=== PATIENT | male | born 2000 ===

== ENCOUNTER 2024-11-05 15:26 | Emergency (ER) | payer MEDICAID, SELFPAY ==
[2024-11-05] VITALS (28 sets, daily range): BP systolic 108–144; BP diastolic 47–89; PULSE 81–171; RESP 15–30; TEMP 34.3–36.6; O2SAT 89–100
--- NOTE | 2024-11-05 15:30 | RT.EKG_ITS ---
APPROVED REPORT Exam: Resting ECG Reason for Exam: chest pain Patient Location: E HR:104 bpm ECG Measurements Heart Rate 104 AXIS CO 121 P -22 QRSd 86 QRS 64 QT 328 T 42 QTc 432 Conclusion Sinus tachycardia at a rate of 104 with wandering leads without acute ischemic change
--- NOTE | 2024-11-05 15:30 | RT.EKG_ITS ---
APPROVED REPORT Exam: Resting ECG Reason for Exam: Peaked [place] Patient Location: E HR:94 bpm ECG Measurements Heart Rate 94 AXIS ID 165 P 259 QRSd 201 QRS -94 QT 465 T 63 QTc 581 Conclusion wide complex tachycardia prolong qtc
--- NOTE | 2024-11-05 15:46 | DI.RAD_ITS ---
Exam(s) XR CHEST 1V IN DI DEPT EXAM: XR CHEST 1V IN DI DEPT CLINICAL HISTORY: weakness TECHNIQUE: 2D digital imaging was performed. COMPARISON: No exams were available for comparison FINDINGS: The lungs are partially obscured by multiple overlying monitoring devices. LUNGS: Clear where visualized. No pleural abnormality seen. HEART: Normal size. AORTA: Normal diameter. BONES: Unremarkable for age. Soft tissues: Unremarkable. IMPRESSION: No acute findings. DATA REPOSITORY: RADIATION DOSE DELIVERED:
[2024-11-05 15:48] LABS: BE (Venous) -28 mmol/L (-2-3); HCO3 (Venous) 3 mmol/L (23-28); O2 Sat (Venous) 97 %; pO2 (Venous) 117 mmHg
[2024-11-05 15:50] LABS: HCT 43.1 % (40.0-50.0); HGB 14.3 g/dL (13.5-17.5); MCH 29.6 pg (27.0-33.0); MCHC 33.2 % (32.0-36.0); MCV 89 fL (80-95); MPV 12.3 fL (8.0-11.0); Platelet Count 147 10^3/uL (130-400); RBC 4.83 10^6/uL (4.36-5.78); RDW 12.0 % (11.8-14.1); RDW-SD 39.1 fL; WBC 18.03 10^3/uL (4.4-10.8)
--- NOTE | 2024-11-05 15:55 | ED.PROG_ITS ---
Date of service: 11/05/24 Time of Service: 17:04 Medical Decision Making Patient evaluated in conjunction with the PA secondary to medical complexity. Patient arrived via EMS with altered mental status and hyperglycemia. Known type I diabetic. Unknown last normal. Significant concern for the patient's wellbeing given his vital sign derangement, wide-complex tachycardia and mental status. He was placed on code cart pads. Patient is obtunded on exam will wake up with painful stimuli. 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 On review of the EKG, IV magnesium was initiated. Patient also started on insulin. High suspicion for severe metabolic derangement. He had received IV fluids by EMS and an additional liter was provided in the emergency department. Lab work reviewed, leukocytosis noted, also in the setting of hypothermia, blood cultures have been sent and started on broad-spectrum antibiotics. VBG concerning for significant acidosis patient has not made any urine, Ervin catheter has been ordered. His initial CMP concerning for severe derangement including hyponatremia, likely falsely low secondary to the hyperglycemia at 911. Potassium 8.2 not hemolyzed. Chloride, CO2 significantly low. His BUN and creatinine are also significantly high. Given the nearly full derangements the patient has at this time, he has been resuscitated with IV fluids, given bicarb, calcium, magnesium, insulin infusion. Given the severity of his illness he needs transfer to higher level of care. Critical Care Time Critical Care Time Critical Care Time: Yes Total Critical Care Time: 40 Attestation: CRITICAL CARE Upon my evaluation, this patient had a high probability of imminent or life- threatening deterioration due to metabolic derangement, diabetic ketoacidosis which required my direct attention, intervention, and personal management. I have personally provided 40 minutes of critical care time exclusive of time spent on separately billable procedures. Time includes review of laboratory data, radiology results, discussion with consultants, and monitoring for potential decompensation. Interventions were performed as documented above Discharge Plan Disposition Patient Disposition: Transfer-Acute Inpatient Care Discharge Details Clinical Impression: Altered mental status, DKA, type 1, CATINA (acute kidney injury), Hypothermia, Hyperkalemia Primary Care Provider: None,None ED Provider: Ginger Prasad
[2024-11-05] MEDS: INSULIN REGULAR IN 0.9 % NACL 100 UNIT/100 ML BAG 6.7 UNIT IVINF (15:58)
[2024-11-05] MEDS: Normal Saline 1,000 ML 1000 ML IV ×2 (15:59→18:19)
[2024-11-05] MEDS: MAGNESIUM SULFATE 2 GM/50 ML BAG 50 GM (16:00)
[2024-11-05 16:10] LABS: Abs Immature Grans 0.00 10^3/uL (0.0-0.06); RBC Morphology Normal
[2024-11-05 16:15] LABS: AST 111 U/L (15-37); Albumin 4.4 g/dL (3.4-5.0); Alkaline Phosphatase 128 U/L (46-116); BUN 78 mg/dL (7-18); Bilirubin, Total 0.9 mg/dL (0.2-1.0); Calcium 9.1 mg/dL (8.5-10.1); Chloride 81 mmol/L (98-107); Estimated GFR 27.56 (mL/min/1.73m2); Magnesium 3.1 mg/dL (1.8-2.4); Total Protein 7.7 g/dL (6.4-8.2)
[2024-11-05 16:15] LABS: Ammonia 43 umol/L (11-32)
[2024-11-05 16:19] LABS: Lipase 22 U/L (<78)
[2024-11-05 16:29] LABS: ALT 50 U/L (16-63)
[2024-11-05 16:30] LABS: Anion Gap 33.00001 mmol/L (3-11)
[2024-11-05 16:32] LABS: Glucose 911 mg/dL (74-106); Sodium 119 mmol/L (136-145)
[2024-11-05 16:33] LABS: CO2 < 5.0 mmol/L (21.0-32.0); Potassium 8.2 mmol/L (3.5-5.1)
[2024-11-05] MEDS: Insulin REGULAR-Human 100 UNITS/ML UNIT 6 UNITS IV (16:41)
[2024-11-05] MEDS: Calcium Gluconate 4.65 MEQ/10 ML VIAL 4.65 MG IVP (16:46)
[2024-11-05 16:54] LABS: TSH (W/Ref FT4) 0.92 uIU/mL (0.36-3.74)
[2024-11-05] MEDS: cefTRIAXone 1 GM/50 ML BAG IVPB (17:00)
[2024-11-05 17:01] LABS: O2 Sat (Venous) 96 %; pO2 (Venous) 109 mmHg
[2024-11-05 17:05] LABS: BE (Venous) -29 mmol/L (-2-3); HCO3 (Venous) 2 mmol/L (23-28)
[2024-11-05] MEDS: Sodium Bicarbonate 50 MEQ/50 ML SYR 100 MEQ IVP (17:18)
[2024-11-05 17:25] LABS: Glucose >=1000 mg/dL (Negative)
[2024-11-05 17:30] LABS: RBC 20-50 HPF (0-2); WBC 0-2 HPF (0-5)
[2024-11-05 17:31] LABS: C & S Indicated? No
--- NOTE | 2024-11-05 17:35 | W.ED.GENAD ---
Discharge Plan Disposition Patient Disposition: Transfer-Acute Inpatient Care Discharge Details Clinical Impression: Altered mental status, DKA, type 1, CATINA (acute kidney injury), Hypothermia, Hyperkalemia Primary Care Provider: None,None ED Provider: Ginger Prasad General Date/Time Provider Initiated Documentation: 11/05/24 15:32. HPI Narrative: This 24-year-old male with history of insulin-dependent diabetes presents obtunded with elevated glucose level per EMS. He reportedly had alcohol with friends on November 02 and was in his room for a few days his brother went to check on him this morning and noticed he was confused and weak. He is concerned that he might not have received his insulin. He denies any known injuries EMS reports that patient was found in bed. Glucose reading was high . No history of drug use. EMS did not notice anything unusual around the bed and brother denies any illicit substance use. 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 no abdominal tenderness or visible evidence of trauma no visible evidence of back trauma no rashes or lesions no meningismus moves neck able to follow some basic commands hand grasp plantar and dorsal foot flexion Course Vital Signs Vital signs: Vital Signs Pulse 104 H 11/05/24 15:32 Respiratory Rate 30 H 11/05/24 15:32 Blood Pressure 123/67 11/05/24 15:32 Pulse Oximetry 89 L 11/05/24 15:32 Temperature 34.3 C L 11/05/24 16:04 Temperature Source Rectal 11/05/24 16:04 Pulse 92 H 11/05/24 16:31 Pulse 90 11/05/24 16:31 Respiratory Rate 21 11/05/24 16:22 Blood Pressure 140/68 11/05/24 16:31 Blood Pressure Mean 93 11/05/24 16:31 Pulse Oximetry 99 11/05/24 16:22 Respiratory End-tidal CO2 9 11/05/24 16:31 Oxygen Delivery Method Room Air 11/05/24 16:04 Oxygen Flow Rate 0 11/05/24 16:04 Lab/Test Results Lab/Test Results: 11/05/24 16:35 Blood Blood Culture - Pending 11/05/24 16:23 Blood Blood Culture - Pending Laboratory Tests Range/Units 11/05/24 11/05/24 11/05/24 15:42 15:53 16:54 WBC (4.4-10.8) 10^3/uL 18.03 H RBC (4.36-5.78) 10^6/uL 4.83 Hgb (13.5-17.5) g/dL 14.3 Hct (40.0-50.0) % 43.1 MCV (80-95) fL 89 MCH (27.0-33.0) pg 29.6 MCHC (32.0-36.0) % 33.2 RDW (11.8-14.1) % 12.0 Plt Count (130-400) 10^3/uL 147 MPV (8.0-11.0) fL 12.3 H Immature Gran % See Differential Neutrophils % % 86.0 Band Neutrophils % % 3 Lymphocytes % % 7.0 Monocytes % % 4.0 Eosinophils % % 0.0 Basophils % % 0.0 Nucleated RBC % (0.0-0.3) % 0.0 Absolute Neutrophils (1.2-6.7) 10^3/uL 16.05 H Absolute Lymphocytes (1.2-3.4) 10^3/uL 1.26 Absolute Monocytes (0.1-0.8) 10^3/uL 0.72 Absolute Eosinophils (0.0-0.7) 10^3/uL 0.00 Absolute Basophils (0.0-0.2) 10^3/uL 0.00 RBC Morphology Normal VBG pH (7.31-7.41) 7.01 L* 6.98 L* VBG pCO2 (41-51) mmHg VBG pO2 mmHg 117 109 VBG HCO3 (23-28) mmol/L 3 L 2 L VBG Total CO2 (24-29) mmol/L VBG O2 Saturation % 97 96 VBG Base Excess (-2-3) mmol/L -28 L -29 L VBG Lactate (<or=2.0) mmol/L 2.7 H* Sodium (136-145) mmol/L 119 L* Potassium (3.5-5.1) mmol/L 8.2 H* Chloride (98-107) mmol/L 81 L Carbon Dioxide (21.0-32.0) mmol/L < 5.0 L* Anion Gap (3-11) mmol/L 33.57987 H BUN (7-18) mg/dL 78 H Creatinine (0.70-1.30) mg/dL 3.1 H Est GFR (CKD-EPI 2020) (mL/min/1.73m2) 27.56 Glucose (74-106) mg/dL 911 H* Calcium (8.5-10.1) mg/dL 9.1 Magnesium (1.8-2.4) mg/dL 3.1 H Total Bilirubin (0.2-1.0) mg/dL 0.9 AST (15-37) U/L 111 H ALT (16-63) U/L 50 Alkaline Phosphatase (46-116) U/L 128 H Ammonia (11-32) umol/L 43 H Total Protein (6.4-8.2) g/dL 7.7 Albumin (3.4-5.0) g/dL 4.4 Lipase (<78) U/L 22 TSH (0.36-3.74) uIU/mL 0.92 Urine Color (Yellow) Urine Clarity (Clear) Urine pH (5-8) Ur Specific Lawrence (1.005-1.025) Urine Protein (Neg-Trace) mg/dL Urine Ketones (Negative) mg/dL Urine Blood (Negative) Urine Nitrite (Negative) Urine Bilirubin (Negative) Urine Urobilinogen (Up to 0.2) mg/dL Ur Leukocyte Esterase (Negative) Urine RBC (0-2) HPF Urine WBC (0-5) HPF Ur Epithelial Cells (Negative) HPF Urine Crystals (Negative) HPF Urine Bacteria (Negative) HPF Urine Casts (Negative) LPF Urine Mucus (Negative) Ur Culture Indicated? Urine Glucose (Negative) mg/dL Ethyl Alcohol (<10) mg/dL < 3.0 Range/Units 11/05/24 17:17 WBC (4.4-10.8) 10^3/uL RBC (4.36-5.78) 10^6/uL Hgb (13.5-17.5) g/dL Hct (40.0-50.0) % MCV (80-95) fL MCH (27.0-33.0) pg MCHC (32.0-36.0) % RDW (11.8-14.1) % Plt Count (130-400) 10^3/uL MPV (8.0-11.0) fL Immature Gran % Neutrophils % % Band Neutrophils % % Lymphocytes % % Monocytes % % Eosinophils % % Basophils % % Nucleated RBC % (0.0-0.3) % Absolute Neutrophils (1.2-6.7) 10^3/uL Absolute Lymphocytes (1.2-3.4) 10^3/uL Absolute Monocytes (0.1-0.8) 10^3/uL Absolute Eosinophils (0.0-0.7) 10^3/uL Absolute Basophils (0.0-0.2) 10^3/uL RBC Morphology VBG pH (7.31-7.41) VBG pCO2 (41-51) mmHg VBG pO2 mmHg VBG HCO3 (23-28) mmol/L VBG Total CO2 (24-29) mmol/L VBG O2 Saturation % VBG Base Excess (-2-3) mmol/L VBG Lactate (<or=2.0) mmol/L Sodium (136-145) mmol/L Potassium (3.5-5.1) mmol/L Chloride (98-107) mmol/L Carbon Dioxide (21.0-32.0) mmol/L Anion Gap (3-11) mmol/L BUN (7-18) mg/dL Creatinine (0.70-1.30) mg/dL Est GFR (CKD-EPI 2020) (mL/min/1.73m2) Glucose (74-106) mg/dL Calcium (8.5-10.1) mg/dL Magnesium (1.8-2.4) mg/dL Total Bilirubin (0.2-1.0) mg/dL AST (15-37) U/L ALT (16-63) U/L Alkaline Phosphatase (46-116) U/L Ammonia (11-32) umol/L Total Protein (6.4-8.2) g/dL Albumin (3.4-5.0) g/dL Lipase (<78) U/L TSH (0.36-3.74) uIU/mL Urine Color (Yellow) Yellow Urine Clarity (Clear) Clear Urine pH (5-8) 5.5 Ur Specific Lawrence (1.005-1.025) 1.020 Urine Protein (Neg-Trace) mg/dL 30 H Urine Ketones (Negative) mg/dL 80 H Urine Blood (Negative) Large H Urine Nitrite (Negative) Negative Urine Bilirubin (Negative) Negative Urine Urobilinogen (Up to 0.2) mg/dL 0.2 Ur Leukocyte Esterase (Negative) Negative Urine RBC (0-2) HPF 20-50 H Urine WBC (0-5) HPF 0-2 Ur Epithelial Cells (Negative) HPF Few Urine Crystals (Negative) HPF Negative Urine Bacteria (Negative) HPF Moderate Urine Casts (Negative) LPF Negative Urine Mucus (Negative) Negative Ur Culture Indicated? No Urine Glucose (Negative) mg/dL >=1000 H Ethyl Alcohol (<10) mg/dL Medical Decision Making Critical care time: 60 minutes secondary to telemetry monitoring hyperkalemic acute management diabetic ketoacidosis acute management, IV fluid resuscitation, diagnostic imaging and lab interpretation and review consultation with specialties, management of CATINA The patient is a 24-year-old male who initially presented with suspected diabetic ketoacidosis, encephalopathy, tachypnea, and hypothermia. Temperature was 93?F, oxygen saturation 98% on room air, maintaining airway. Labs: leukocytosis 18,000, initial pH 7.01 at 1654 hours, repeat pH 7.98 at 1654 hours after insulin drip, HCO3 2, lactate 2.7, magnesium 3.1. Given 2 g magnesium for wide complex tachycardia. Potassium not initiated due to peaked T waves; potassium 8.2, creatinine 3.1, BUN 78, sodium 119 (likely pseudohyponatremia). Receiving 1 L normal saline per hour for hyperkalemia. Administered 6.7 unit bolus IV insulin, 1 g calcium gluconate, continuous albuterol nebulization. BMP will be repeated to reevaluate potassium. Urinalysis: 80 ketones, no infection, 0-2 WBCs. Opiate screen pending. Obtained 200 cm? urine after 2 L normal saline. Ethanol <3. End-tidal CO2 10-12. Given 100 mEq bicarb for low pH. Received 1 g ceftriaxone for leukocytosis and lactic acidosis. Bear hugger and warmed fluids in place. Temperature will be rechecked. Chest x-ray and CT scan pending. Case discussed with Dr. Tucker marie Marie; accepted to ICU, critical care transport notified. Mentation unchanged, maintaining airway. EKG improved with narrow QTc. Initial Assessment: 24-year-old male initially presenting with suspected diabetic ketoacidosis, encephalopathic tachypnea, hypothermia, and leukocytosis. Differential Diagnosis: - Diabetic Ketoacidosis: Confirmed by initial pH 7.01 and elevated ketones in urinalysis. Treated with 6.7 unit bolus IV insulin, 1 g calcium gluconate, continuous albuterol nebulization. Repeat BMP to reassess potassium. - Encephalopathy: Mentation unchanged, maintaining airway. - Tachypnea: Rapid breathing consistent with illness. - Hypothermia: Temperature 93?F. Bear hugger and warmed fluids in place. - Leukocytosis: WBC 18,000. Received 1 g ceftriaxone for leukocytosis and lactic acidosis. - Hyperkalemia: Potassium 8.2. Receiving 1 L normal saline per hour. - Pseudohyponatremia: Sodium 119, likely pseudohyponatremia. - Lactic Acidosis: Lactate 2.7. Given 100 mEq bicarb for low pH. - Acute Kidney Injury: Creatinine 3.1, BUN 78. ED Course: - Initial pH of 7.01 at 1654. - Repeat pH 7.98 at 1654. - Insulin drip. - HCO3 of 2. - Lactate of 2.7. - Magnesium of 3.1. - Given 2 g of magnesium initially. - Tachycardia on the monitor. - Potassium found to be 8.2. - Creatinine of 3.1. - BUN of 78. - Sodium of 119. - Receiving 1 L of NS per hour. - 6.7 unit bolus of IV insulin. - 1 g of calcium gluconate. - Continuous albuterol nebulization. - Repeat BMP to reevaluate potassium level. - Urinalysis displayed 80 ketones. - No evidence of infection. - 0-2 white blood cells. - Opiate screen pending. - Urinalysis obtained. - Only 200 cm? of urine after 2 L of NS. - Ethanol alcohol less than three. - End-tidal CO2 between 10 and 12. - Given 100 mEq of bicarb. - 1 g of ceftriaxone. - Bear hugger in place. - Warmed fluids. - Chest x-ray and CT scan pending. - Case discussed with Dr. Tucker. - Accepted to the intensive care unit. - Critical care transport notified. - Mentation remained the same. - Maintaining airway. - EKG improved. - QTc narrow. Final Assessment: Patient treated for diabetic ketoacidosis, encephalopathy, tachypnea, hypothermia, leukocytosis, hyperkalemia, pseudohyponatremia, lactic acidosis, and acute kidney injury. Multiple interventions and diagnostic tests performed. Clinical Impression: - Diabetic Ketoacidosis - Encephalopathy - Tachypnea - Hypothermia - Leukocytosis - Hyperkalemia - Pseudohyponatremia - Lactic Acidosis - Acute Kidney Injury Disposition: - Admission: Accepted to the intensive care unit. MDM Components Evaluation: - Number of Differential Diagnoses or Management Options: Diabetic Ketoacidosis, Encephalopathy, Tachypnea, Hypothermia, Leukocytosis, Hyperkalemia, Pseudohyponatremia, Lactic Acidosis, Acute Kidney Injury. - Amount and Complexity of Data Reviewed: Initial pH, repeat pH, insulin drip, HCO3, lactate, magnesium, potassium, creatinine, BUN, sodium, NS infusion, IV insulin, calcium gluconate, albuterol nebulization, BMP, urinalysis, opiate screen, ethanol alcohol, end-tidal CO2, bicarb, ceftriaxone, chest x-ray, CT scan, EKG. - Risk of Complication and Morbidity or Mortality: High risk due to diabetic ketoacidosis, encephalopathy, hyperkalemia, acute kidney injury, and lactic acidosis. PFSH All Active Problems (Updated 11/05/24 @ 17:08 by Michele Angel MD) Hyperkalemia (Acute) Hypothermia (Acute) CATINA (acute kidney injury) (Acute) DKA, type 1 (Acute) Altered mental status (Acute) Social History Smoking/Tobacco Use Status: Unknown Smoking risk assessment performed?: Yes Alcohol Intake: current Substance use type: unknown Housing: house
[2024-11-05 17:40] LABS: Cannabinoids THC Negative (Negative); METHADONE URINE SCREEN Negative (Negative)
--- NOTE | 2024-11-05 17:41 | DI.CT_ITS ---
Exam(s) CT HEAD WO EXAM: CT HEAD WO CLINICAL HISTORY: ams. TECHNIQUE: Imaging Protocol: Axial computed tomography images with coronal and sagittal reformatted images were created and reviewed COMPARISON: No exams were available for comparison FINDINGS: The exam is mildly limited by motion. Ventricles and Extra axial spaces: Normal in size and morphology for the patient's age. Hemorrhage: None. Cerebral parenchyma: No evidence of acute infarct or mass. Midline shift: None. Brainstem/Cerebellum: Normal. Bones: No skull or facial fractures. Visualized Paranasal sinuses:Clear. Mastoids: Clear. Soft Tissues: Unremarkable. ORBITS: Unremarkable. PITUITARY: Not enlarged. IMPRESSION: No acute intracranial process. RADIATION DOSE DELIVERED: Total DLP DATA REPOSITORY: All CT scans at this facility are submitted to the National Radiology Data Registry (NRDR) Dose Index Registry (DIR) with the [employer] (ACR). RADIATION OPTIMIZATION: All CT scans at this facility use at least one of these dose optimization techniques: automated exposure control; mA and/or kV adjustment per patient size (includes targeted exams where dose is matched to clinical indication); or iterative reconstruction.
[2024-11-05 18:22] LABS: BUN 76 mg/dL (7-18); Calcium 8.1 mg/dL (8.5-10.1); Chloride 89 mmol/L (98-107); Estimated GFR 26.53 (mL/min/1.73m2); Sodium 127 mmol/L (136-145)
[2024-11-05 18:24] LABS: Creatine Kinase 3490 U/L (39-308)
[2024-11-05 18:24] LABS: Anion Gap 33.00001 mmol/L (3-11)
[2024-11-05 18:25] LABS: Glucose 741 mg/dL (74-106)
[2024-11-05 18:26] LABS: CO2 < 5.0 mmol/L (21.0-32.0); Potassium 6.3 mmol/L (3.5-5.1)
[2024-11-05] MEDS: ALBUTEROL 15 MG, SODIUM CHLORIDE 0.9% FOR INH. 3 ML UPD (18:42)
--- NOTE | 2024-11-07 08:41 | NUR.NOTE ---
Access chart to reconcile EKG's in [facility] and EKG orders. Duplicate order cancelled. Nursing Note:
== END 2024-11-05 18:35 | disposition short-term general hospital (02) ==
PROVIDERS: Emergency Medicine; Emergency Provider Physician Assistant
DX: E10.10 Type 1 diabetes mellitus with ketoacidosis without coma (principal); N17.9 Acute kidney failure, unspecified; T68.XXXA Hypothermia, initial encounter; E87.5 Hyperkalemia; R00.0 Tachycardia, unspecified
CPT/HCPCS: 00123; 80048; 80053; 80307; 82550; 82805; 83690; 87040; 93005; 94640; 96365; 96375; 99291; 70450; 71045; 80320; 81003; 81015; 82140; 83605; 83735; 84443; 85025; 93010; J0612; J0696; J1815; J3475; J7613

== ENCOUNTER 2024-11-15 13:57 | Emergency (ER) | payer MEDICAID, SELFPAY ==
[2024-11-15 14:00] VITALS: BP 148/82; PULSE 131; RESP 16; TEMP 36.3; O2SAT 98
--- NOTE | 2024-11-15 14:33 | W.ED.GENAD ---
Discharge Plan Disposition Patient Disposition: Home Condition: Stable Discharge Details Clinical Impression: Eye pain Primary Care Provider: None,None ED Provider: Asher Ly Discharge Instructions Additional Instructions: Use the antibiotic ointment 3 times a day for 7 days or until the tube is gone. I placed you on a referral list to see an eye healthcare network pricing consultant at [facility]. You should receive a call with an appointment. If you feel more ill or have high fevers return to the emergency department for reevaluation HPI General Mode of arrival: ambulatory. Date/Time Provider Initiated Documentation: 11/15/24 13:59. Limitations to Documentation: no limitations. Information obtained by: patient. History of Present Illness 24 year old M presents to the emergency department with the chief complaint of right eye pain, described as moderate, Quality is described as aching, and is localized to the eyes. Patient reports no radiation. Patient started experiencing this day(s) (2) and it has been constant. No relieving factors improve symptom(s), No exacerbating factors reported . Patient notes denies chest pain, nausea/vomiting and shortness of breath. Patient did receive the following treatments prior to arrival, none Related Data Allergies Allergy/AdvReac Type Severity Reaction Status Date / Time No Known Allergies Allergy Unverified 11/05/24 17:18 General Stated Complaint: EyeProblem BARBARA: 3 Review of Systems All systems reviewed & are unremarkable except as noted in HPI and below Constitutional Constitutional: Denies chills, Denies fever(s) and Denies weakness Eyes Eyes: Denies loss of vision Cardiovascular Cardiovascular: Denies dyspnea Respiratory Respiratory: Denies cough and Denies dyspnea Gastrointestinal Gastrointestinal: Denies abdominal pain, Denies nausea and Denies vomiting Neurologic Neurologic: Denies loss of vision and Denies weakness Exam Const General: no acute distress Orientation: alert [facility] Head: normal to inspection Ears: external ears normal General nose exam: external nose normal Mouth: moist mucous membranes Eyes General: appearance normal, both eyes and all related structures Alignment and Position: alignment normal Periorbital: periorbital findings normal Eyelids: eyelids normal Pupils: PERRL EOM: EOM intact bilaterally Neck Neck: normal visual inspection Resp Effort & Inspection: normal respiratory effort and able to speak in complete sentences Cardio Rate: regular rate Skin General skin exam: no rashes or lesions noted Neuro General: patient alert and patient oriented x3 Extrem General: normal to inspection Psych Mental Status: mental status grossly normal Course Vital Signs Vital signs: Vital Signs Temperature 36.3 C L 11/15/24 14:00 Pulse 131 H 11/15/24 14:00 Respiratory Rate 16 11/15/24 14:00 Blood Pressure 148/82 H 11/15/24 14:00 Pulse Oximetry 98 11/15/24 14:00 Temperature 36.3 C L 11/15/24 14:00 Temperature Source Tympanic 11/15/24 14:00 Pulse 131 H 11/15/24 14:00 Respiratory Rate 16 11/15/24 14:00 Blood Pressure 148/82 H 11/15/24 14:00 Pulse Oximetry 98 11/15/24 14:00 Pain Level 8 11/15/24 14:00 Medical Decision Making 24-year-old male with a history of type 1 diabetes who was transferred to [facility] after being in severe DKA earlier this month states he recovered well and has been at home comes in with 2 or so days of right eye discomfort. He says he thinks he got swelling in his eye and causing pain. He denies any loss of vision in his 20/20 in his right eye on visual acuity. He is no periorbital swelling, extraocular eye movements are intact, pupils are equal and reactive to light. The right eye conjunctive is mildly erythematous with limbic sparing. 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 He also has pain at the limits. I suspect conjunctivitis rather than uveitis. IOP I am going to try and expedite an appointment with the [facility]. I will place him on an erythromycin ointment for the possible conjunctivitis. Return precautions given. Heart rate on my exam is 98. Differential Diagnosis Differential Diagnosis: Iritis, conjunctivitis PFSH All Active Problems (Updated 11/15/24 @ 15:00 by Asher Ly MD) Eye pain (Acute) Hyperkalemia (Acute) Hypothermia (Acute) CATINA (acute kidney injury) (Acute) DKA, type 1 (Acute) Altered mental status (Acute) Social History Smoking/Tobacco Use Status: Unknown Smoking risk assessment performed?: Yes Alcohol Intake: current Substance use type: unknown Housing: house
[2024-11-15] MEDS: Erythromycin Ophth Oint 3.5 GM TUBE OP (15:05)
[2024-11-15 15:08] VITALS: BP 124/84; BP 148/82; PULSE 131; PULSE 64; RESP 13; RESP 16; TEMP 36.3; O2SAT 95; O2SAT 98
--- NOTE | 2024-11-15 16:13 | NUR.NOTE ---
Called and left a message on voice mail advising that [facility] can see him tomorrow morning (11/15) at 0800.
== END 2024-11-15 15:07 | disposition home or self-care (01) ==
PROVIDERS: Emergency Provider Emergency Medicine
DX: H57.11 Ocular pain, right eye (principal); E10.9 Type 1 diabetes mellitus without complications
CPT/HCPCS: 99283